=== PATIENT | female | born 1995 | race American Indian/Alaskan Native ===

== ENCOUNTER 2018-12-06 09:12 | Inpatient (IN) | payer MEDICAID ==
[2018-12-06 12:59] LABS: Basophils % (Auto) 0.4 % (0.0-1.8); Eosinophils # (Auto) 0.1 K/mm3 (0.0-0.4); Eosinophils % (Auto) 1.2 % (0.0-4.3); Hematocrit 37.2 % (30.3-42.9); Hemoglobin 12.9 gm/dl (10.1-14.3); Lymphocytes # (Auto) 1.9 K/mm3 (1.2-5.4); Lymphocytes % (Auto) 26.3 % (13.4-35.0); Mean Corpuscular HGB Conc 35 % (30-34); Mean Corpuscular Volume 79 fl (79-97); Monocytes # (Auto) 0.4 K/mm3 (0.0-0.8); Platelet Count 264 K/mm3 (140-440); Red Blood Count 4.69 M/mm3 (3.65-5.03); Red Cell Distribution Width 14.4 % (13.2-15.2)
--- NOTE | 2018-12-06 13:40 | History and Physical Report ---
History of Present Illness Date of examination: 12/06/18 Date of admission: 12/06/18 09:12 Chief complaint: 22 yr old at 38 +2 wks, type I diabetic admitted this morning with iugr and for induction. History of present illness: . 38+2 wks, Type I diabetic. Has an insulin pump. Blood sugars through were decent. Past History Past Medical History: diabetes (Mother reported her to have sickle cell crisis from [facility]) - Obstetrical History Expected Date of Delivery: 12/18/18 Actual Gestation: 38 Week(s) 2 Day(s) : 2 Para: 1 Number of Living Children: 1 Medications and Allergies Allergies Allergy/AdvReac Type Severity Reaction Status Date / Time Latex, Natural Rubber Allergy Nausea Verified 10/13/15 06:23 Home Medications Medication Instructions Recorded Confirmed Last Taken Type Sulfamethoxazole/Trimethoprim 1 each PO BID #20 tablet 10/13/15 Unknown Rx [Bactrim DS TAB] traMADol [Ultram] 50 mg PO Q6HR PRN #12 tablet 10/13/15 Unknown Rx Review of Systems All systems: negative - Vital Signs Vital signs: Vital Signs Pulse BP Pulse Ox 76 128/82 100 12/06/18 09:39 12/06/18 09:39 12/06/18 09:39 Temp Pulse Resp BP Pulse Ox 98.3 F 69 20 118/74 99 12/06/18 11:44 12/06/18 12:19 12/06/18 11:44 12/06/18 11:45 12/06/18 12:19 - Physical Exam Breasts: Positive: deferred Lungs: Positive: Clear to auscultation - Obstetrical FHR: category 1 Results Result Diagrams: 12/06/18 10:30 Abnormal lab results 12/06/18 Range/Units 10:30 MCHC 35 H (30-34) % All other labs normal. Assessment and Plan - Patient Problems (1) Term Current Visit: Yes Status: Acute (2) Type I diabetes mellitus Current Visit: Yes Status: Acute Plan to address problem: Admit to L&D. Patient ordered to not use her insulin pump whilst on admission and to defer all insulin injections to hospital staff. Started on sliding scale insulin. Started on cervidil. (3) IUGR (intrauterine growth restriction) Current Visit: Yes Status: Acute
[2018-12-06] MEDS ORDERED: BRETHINE SUB-Q PRN (13:47)
[2018-12-06] MEDS ORDERED: MINERAL OIL PO PRN (13:47)
[2018-12-06] MEDS ORDERED: BRETHINE IVP PRN (13:47)
[2018-12-06] MEDS ORDERED: PITOCin/NS 20 UNIT/1000ML DRIP 20 UNITS/1,000 ML BAG IV SCH (14:00)
[2018-12-06] MEDS ORDERED: PITOCin/NS 30 UNIT/500ML 30 UNITS/500 ML BAG IV SCH (14:00)
[2018-12-06] MEDS ORDERED: D50W (25GM) Syringe IV PRN (14:09)
[2018-12-06] MEDS ORDERED: AMPICILLIN/NS 2 GM/100 ML 2 GM/100 ML BAG IV ONE (15:00)
[2018-12-06] MEDS ORDERED: CERVIDIL VG ONE (15:30)
[2018-12-06] MEDS ORDERED: XYLOCAINE 2% INFILTRATI ONE (15:47)
[2018-12-06] MEDS ORDERED: AMPICILLIN 1 GM in NACL 0.9% 50 ML IV SCH (18:00)
[2018-12-06] MEDS ORDERED: TYLENOL PO PRN (21:20)
[2018-12-06] MEDS: VALTREX PO SCH (23:08)
[2018-12-07] MEDS ORDERED: AMPICILLIN/NS 2 GM/100 ML 2 GM/100 ML BAG IV ONE (10:35)
[2018-12-07] MEDS: LACTATED RINGERS 1,000 ML IV SCH (10:39)
[2018-12-07] MEDS: VALTREX PO SCH (10:39)
[2018-12-07] MEDS: AMPICILLIN/NS 1 GM/50 ML 1 GM/50 ML BAG IV SCH ×2 (15:06→19:25)
--- NOTE | 2018-12-07 16:35 | Progress Note ---
Assessment and Plan - Patient Problems (1) 38 weeks gestation of Current Visit: Yes Status: Acute Plan to address problem: Continue monitoring. Insert cervidil today. (2) Type I diabetes mellitus Current Visit: Yes Status: Acute (3) IUGR (intrauterine growth restriction) Current Visit: Yes Status: Acute (4) Sickle cell trait Current Visit: Yes Status: Acute (5) Positive GBS test Current Visit: Yes Status: Acute Plan to address problem: IV ampicillin in labor. Subjective - Subjective Date of service: 12/07/18 Principal diagnosis: SIUP at 38 weeks and 2 days with IUGR, pre-gest DM-1 Interval history: Patient is a 22 year old , EDC 12/18/18 at 38 weeks and 2 days who was admitted for labor induction due to pre-gestational DM-1 and IUGR. She is a patient of [facility] who has been co-managed with [facility]. She had an insulin pump which was discontinued on admission. She has been on insulin sliding scale since. Her glucose has been stable. She had a cervidil yesterday which was removed at 4 AM today. She is not obi. tracing is CAT1. Cervix: 1 cm/50%/-3. posterior. Objective - Vital Signs Vital Signs: Vital Signs - 12hr 12/07/18 12/07/18 12/07/18 06:53 07:16 07:53 Temperature 98.3 F Pulse Rate 62 69 67 Respiratory 20 Rate Blood Pressure 112/61 112/61 122/65 Blood Pressure [Right] O2 Sat by Pulse Oximetry 12/07/18 12/07/18 12/07/18 08:54 12:30 15:35 Temperature 98.4 F 97.7 F Pulse Rate 74 76 65 Respiratory 18 18 Rate Blood Pressure 124/69 119/71 Blood Pressure 119/78 [Right] O2 Sat by Pulse 99 99 Oximetry 12/07/18 15:36 Temperature Pulse Rate 65 Respiratory Rate Blood Pressure 119/78 Blood Pressure [Right] O2 Sat by Pulse Oximetry - Exam Cardiovascular: Normal S1, Normal S2 Lungs: Clear to auscultation Vulva: both: normal FHR: category 1 Uterine Contraction Monitor Mode: External Cervical Dilatation: 1 Cervical Effacement Percentage: 50 station: -3 Uterine Contraction Pattern: Absent Deep Tendon Reflex Grade: Normal +2 - Labs Labs: Abnormal Labs 12/06/18 10:30 MCHC 35 H Laboratory Results - last 24 hr 12/06/18 12/07/18 10:30 11:56 POC Glucose 99 RPR Nonreactive - Results US- obstetric: report reviewed
[2018-12-07] MEDS ORDERED: CERVIDIL VG ONE (17:27)
--- NOTE | 2018-12-07 19:07 | Event Note ---
Date: 12/07/18 Cervidil 10 mg placed in posterior fornix of vagina.
--- NOTE | 2018-12-08 00:09 | Event Note ---
Date: 12/08/18 SVE 2-3/-3. Cervidil out. Patient is having contractions every 2-4 minutes. Uterus palpates soft between contractions.
[2018-12-08] MEDS ORDERED: SUBLIMAZE IV ONE (00:26)
[2018-12-08] MEDS ORDERED: MARCAINE 0.25% INFILTRATI ONE (01:52)
[2018-12-08] MEDS ORDERED: fentaNYL-BUPIV 2 MCG/ML-0.125% 200 MCG/100 ML BAG EPIDURAL ONE (02:11)
[2018-12-08] MEDS ORDERED: NARCAN 2 MG/2 ML IV PRN (02:17)
[2018-12-08] MEDS ORDERED: XYLOCAINE 2%/ EPI 1:200,000 INFILTRATI ONE (02:22)
[2018-12-08] MEDS ORDERED: NACL 0.9% IR ONE (02:27)
[2018-12-08] MEDS ORDERED: WATER FOR IRRIG STERILE IR ONE (02:27)
[2018-12-08] MEDS ORDERED: SUBLIMAZE ONE (02:39)
[2018-12-08] MEDS ORDERED: VERSED ONE (02:39)
[2018-12-08] MEDS ORDERED: BENADRYL ONE (02:47)
--- NOTE | 2018-12-08 02:48 | Anesthesia Consultation ---
Anesthesia Consult and Med Hx Date of service: 12/08/18 - Airway Anesthetic Teeth Evaluation: Good ROM Head & Neck: Adequate Mental/Hyoid Distance: Adequate Mallampati Class: Class II Intubation Access Assessment: Good - Pulmonary Exam CTA: Yes - Cardiac Exam Cardiac Exam: RRR - Pre-Operative Health Status ASA Pre-Surgery Classification: ASA2, Emergency Proposed Anesthetic Plan: Epidural - Pulmonary Hx Asthma: No COPD: No Hx Pneumonia: No - Cardiovascular System Hx Hypertension: No - Central Nervous System Hx Seizures: No Hx Psychiatric Problems: Yes (Anxiety) - Endocrine Hx Renal Disease: No Hx End Stage Renal Disease: No Hx Hypothyroidism: No Hx Hyperthyroidism: No - Hematic Hx Anemia: Yes (took iron pills after last delivery) Hx Sickle Cell Disease: No (sickle cell trait) - Other Systems Hx Alcohol Use: No
--- NOTE | 2018-12-08 02:49 | Anesthesia Day of Surgery ---
Anesthesia Day of Surgery - Day of Surgery Patient Examined: Yes Patient H&P Reviewed: Yes Patient is NPO: Yes
[2018-12-08] MEDS ORDERED: fentaNYL-BUPIV 2 MCG/ML-0.125% 200 MCG/100 ML BAG EPIDURAL SCH (03:00)
[2018-12-08] MEDS ORDERED: DIPRIVAN 10 MG/ML IV ONE (03:08)
--- NOTE | 2018-12-08 03:24 | Event Note ---
Date: 12/08/18 Patient was induced with cervidil. I went to examine her. Cervix was 3-4 cm/80%/-2, intact membranes. tracing was in the 140's bpm and reactive. BP 116/70. She developed sudden bradycardia in the 40-50's bpm. Sonogram was done at bedside to confirm that it was not maternal pulse. At that time, the patient was counselled for emergency C/section. She was wheeled to the OR. Anesthesia was present. She already had an epidural for pain. NICU called.
[2018-12-08] MEDS ORDERED: MILK OF MAGNESIA PO PRN (03:25)
[2018-12-08] MEDS ORDERED: SENOKOT PO PRN (03:25)
[2018-12-08] MEDS ORDERED: MORPHINE IV PRN (03:25)
[2018-12-08] MEDS ORDERED: TUCKS PAD TP PRN (03:25)
[2018-12-08] MEDS ORDERED: MYLICON PO PRN (03:25)
[2018-12-08] MEDS ORDERED: TORADOL IV PRN ×2 (03:25)
[2018-12-08] MEDS ORDERED: TYLENOL PO PRN (03:25)
[2018-12-08] MEDS ORDERED: LANSINOH TP PRN (03:25)
[2018-12-08] MEDS ORDERED: PHENERGAN PR PRN ×2 (03:25→03:49)
[2018-12-08] MEDS ORDERED: ZOFRAN IV PRN ×2 (03:25→03:49)
[2018-12-08] MEDS ORDERED: ANUCORT-HC PR PRN (03:25)
[2018-12-08] MEDS ORDERED: NARCAN 0.4 MG/1 ML IV PRN ×2 (03:25→03:49)
[2018-12-08] MEDS ORDERED: DILAUDID ONE (03:29)
--- NOTE | 2018-12-08 03:41 | Operative Report ---
Operative Report Operative Report: Preoperative diagnosis 1. SIUP at 38 weeks and 4 days gestation in active labor. 2. CAT 3 tracing. 3. Pre-gestational diabetes type-1. Postoperative diagnosis: Same. Procedure: Emergency Primary low-transverse section. Surgeon: Dr. Hayden Refinery Operator Gas Plant: none Anesthesia: epidural. IVF: RL 1200 cc. EBL: 200 cc Urine: 100 cc clear Complications: none. Intraoperative findings: 1. A male found in an YURIDIA position, delivered at 2:32 AM, Apgars 8 at 1 minute and 9 at 5 minutes, weight 6 lbs 2 oz. 2. Normal fallopian tubes and ovaries bilaterally. Procedure details: Risks, benefits, and alternatives of the procedure were discussed in detail with the patient which included but not limited to the risk of infection, hemorrhage requiring blood transfusion, injury to the bowel or bladder and blood vessels. The patient expressed understanding, her questions were answered, and she gave informed consent. The patient was taken to the operating room with an IV fluid infusing Ringers lactate. In the operating room, she was placed in a dorsal supine position with a leftward tilt. She was loaded with epidural anesthesia. Barrett catheter in Venodyne boots were placed. The abdomen was washed and she was prepared and draped in usual sterile fashion. After confirming adequate epidural anesthesia, the Pfannenstiel skin incision was made in the lower abdomen about 2 cm above the pubic symphysis using the scalpel. This incision was carried down to the underlying fascia using the Bovie. The fascia was opened bilaterally in a curvilinear fashion using the Bovie. 2 straight Kocker clamps were used to grasp the upper edge of the fascia from which the underlying rectus abdominis muscles was dissected off using the Bovie. A similar procedure was done with the lower edge of the fascia to dissect the underlying rectus abdominis muscle. The muscle was bluntly from the midline by pulling. The parietal peritoneum was grasped with 2 hemostat clamps and entered sharply using Metzenbaum scissors. A quick survey of the anatomy revealed a gravid uterus, normal fallopian tubes and ovaries bilaterally. A bladder flap was created. Robi'O retractor was placed in the incision for proper visualization. A low transverse incision was made in the lower uterine segment using the scalpel and extended bilaterally in a curvilinear fashion using bandage scissors. There was copious amount of clear amniotic fluid. The was found in an UYRIDIA position, the head was delivered atraumatically followed by the delivery of the shoulders and the rest of the body at 2:32 AM. The cord was clamped 2 and cut and the was handed off to the waiting clay burner. The infant was a male, Apgars were 8 at 1 minute and 9 at 5 minutes, weight was 6 pounds 2 oz. Cord blood was collected. The placenta was delivered manually and it was complete with a three-vessel cord. The uterine cavity was cleaned of clots and debris using dry lap sponges. The uterine incision was repaired in a running locked fashion using 0 Vicryl sutures. A second layer of imbrication was placed. The gutters were cleaned of clots and debris using dry lap sponges. After confirming adequate hemostasis, the instruments were removed from the abdominal cavity. The rectus muscle was reapproximated in an interrupted fashion using 0 Vicryl sutures. The fascia was closed in a running fashion using 0 Vicryl sutures. The subcutaneous adipose layer was closed with 2.0 chromic sutures. The skin was closed with tolu. Sterile dressing was placed. The counts of laps, needles, sponges, and instruments were correct 2. The patient tolerated the procedure well, she was taken to the recovery room in a stable condition.
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
[2018-12-08] MEDS ORDERED: DILAUDID IV PRN ×2 (03:49)
[2018-12-08] MEDS ORDERED: PHENERGAN PO PRN (03:49)
[2018-12-08] MEDS ORDERED: PITOCin/NS 20 UNIT/1000ML DRIP 20 UNITS/1,000 ML BAG IV SCH (04:00)
[2018-12-08] MEDS ORDERED: SODIUM CHLORIDE FLUSH SYRINGE 10 ML IV NR ×2 (04:00)
[2018-12-08] MEDS: MORPHINE IV PRN ×2 (07:38→12:30)
[2018-12-08] MEDS: HumuLIN R SUB-Q SCH ×6 (08:33→19:45)
[2018-12-08] MEDS: LACTATED RINGERS 1,000 ML IV SCH (09:25)
[2018-12-08] MEDS: PRENATAL VITAMIN PO SCH (09:27)
[2018-12-08] MEDS: FEOSOL PO SCH (09:27)
[2018-12-08] MEDS: VALTREX PO SCH ×3 (09:53→22:17)
[2018-12-08 15:40] LABS: Hematocrit 29.1 % (30.3-42.9); Hemoglobin 10.2 gm/dl (10.1-14.3)
[2018-12-08] MEDS: PERCOCET 5/325 PO PRN ×2 (15:54→22:17)
[2018-12-08] MEDS: IBUPROFEN PO PRN (20:58)
[2018-12-09] MEDS: PERCOCET 5/325 PO PRN ×3 (05:27→23:25)
[2018-12-09] MEDS: HumuLIN R SUB-Q SCH ×6 (07:30→19:00)
[2018-12-09] MEDS: IBUPROFEN PO PRN (09:28)
[2018-12-09] MEDS: VALTREX PO SCH ×2 (09:28→23:25)
[2018-12-09] MEDS: FEOSOL PO SCH (09:28)
[2018-12-09] MEDS: PRENATAL VITAMIN PO SCH (09:29)
--- NOTE | 2018-12-09 17:15 | Progress Note ---
Assessment and Plan - Patient Problems (1) S/P primary low transverse Current Visit: Yes Status: Acute Plan to address problem: POD 1 - stable Continue routine postop orders Ambulation encouraged, as tolerated Abdominal binder ordered Anticipate discharge in 24-48 hours (2) Anemia due to blood loss, acute Current Visit: Yes Status: Acute Plan to address problem: Asymptomatic Continue iron therapy (3) Type I diabetes mellitus Current Visit: Yes Status: Acute Qualifiers: Diabetes mellitus complication status: without complication Qualified Code(s): E10.9 - Type 1 diabetes mellitus without complications Plan to address problem: Blood glucose stable Continue sliding scale insulin Continue GDM diet Subjective - Subjective Date of service: 12/09/18 Principal diagnosis: POD #1; s/p Primary LTCS, Pre-gest DM-1 Interval history: see H&P, OB Progress Note, Event Notes, Operative Report Patient reports: appetite normal, voiding normally, pain well controlled, flatus, ambulating normally, no dizzy ambulation, no bowel movement : doing well, other (breast and bottle feeding) Objective - Vital Signs Latest vital signs: Vital Signs Temp Pulse Resp BP Pulse Ox 12/09/18 08:46 98.1 F 75 18 117/64 98 12/09/18 06:27 18 12/09/18 05:27 18 12/09/18 01:54 97.9 F 79 20 113/66 99 12/08/18 23:17 18 12/08/18 22:18 98.3 F 82 20 114/64 98 12/08/18 22:17 18 12/08/18 21:58 18 12/08/18 20:58 18 Intake and Output 12/09/18 12/09/18 12/09/18 07:59 15:59 23:59 Intake Total 360 Output Total 400 Balance -40 Intake: Intake, Free Water 360 Output: Urine 400 Void 400 Other: Total, Output Amount 400 # Voids Void 1 - Exam Cardiovascular: Present: Regular rate Lungs: Present: Clear to auscultation Abdomen: Present: normal appearance, soft Vulva: both: normal Uterus: Present: normal, firm, fundal height at umbilicus Extremities: Present: normal Incision: Present: normal, dry, intact, dressed Comments: scant lochia
[2018-12-10] MEDS: IBUPROFEN PO PRN ×2 (06:00→13:44)
[2018-12-10] MEDS: HumuLIN R SUB-Q SCH ×2 (08:00→10:37)
[2018-12-10] MEDS: PRENATAL VITAMIN PO SCH (10:03)
[2018-12-10] MEDS: FEOSOL PO SCH (10:03)
[2018-12-10] MEDS: PERCOCET 5/325 PO PRN ×2 (10:03→16:23)
[2018-12-10] MEDS: VALTREX PO SCH (10:03)
[2018-12-10] MEDS ORDERED: HumuLIN R SUB-Q SCH (14:00)
--- NOTE | 2018-12-10 14:34 | Progress Note ---
Assessment and Plan - Patient Problems (1) 38 weeks gestation of Current Visit: Yes Status: Acute (2) Type I diabetes mellitus Current Visit: Yes Status: Acute Qualifiers: Diabetes mellitus complication status: without complication Qualified Code(s): E10.9 - Type 1 diabetes mellitus without complications (3) IUGR (intrauterine growth restriction) Current Visit: Yes Status: Acute (4) Sickle cell trait Current Visit: Yes Status: Acute (5) Positive GBS test Current Visit: Yes Status: Acute Plan to address problem: IV ampicillin given in labor. (6) delivery delivered Current Visit: Yes Status: Acute Plan to address problem: Continue routine post op care. Patient wants to go home today. Precautions were given. Continue glucose monitoring. Pt to F/U in office in 1 week for wound check and with income tax consultant in one week. Subjective - Subjective Date of service: 12/10/18 Principal diagnosis: POD #2; s/p Primary LTCS, Pre-gest DM-1 Interval history: Patient is a 22 year old , EDC 12/18/18 at 38 weeks and 2 days who was admitted for labor induction due to pre-gestational DM-1 and IUGR. She is a patient of [facility] who has been co-managed with [facility]. She had an insulin pump which was discontinued on admission. She has been on insulin sliding scale since. Her glucose has been stable. She had a cervidil. She progressed to 3-4 cm and developed bradycardia. She underwent an emergency C/section. She ahs been on a sliding scale insulin. Her glucose has been fairly controlled with fasting of 87 and 2-hr PP 119. She is tolerating ADA diet well and is ambulating. She passed flatus. No BM yet. Objective - Vital Signs Latest vital signs: Vital Signs Temp Pulse Resp BP BP Pulse Ox 12/10/18 08:36 98.0 F 18 130/72 12/10/18 07:00 18 12/10/18 06:00 18 12/10/18 00:25 18 12/10/18 00:00 98.4 F 62 19 114/67 12/09/18 23:25 18 12/09/18 18:03 98.6 F 87 20 121/74 98 Intake and Output 12/09/18 12/10/18 12/10/18 23:59 07:59 15:59 Intake Total 720 360 Balance 720 360 Intake: Oral 360 Intake, Free Water 360 360 Other: Total, Intake Amount 360 # Voids Void 1 1 - Exam Cardiovascular: Present: Normal S1, Normal S2 Lungs: Present: Clear to auscultation Vulva: both: normal Deep Tendon Reflex Grade: Normal +2 - Labs Labs: Abnormal lab results 12/09/18 12/10/18 Range/Units 19:22 14:10 POC Glucose 138 H 119 H (70-105)
--- NOTE | 2018-12-10 15:48 | Discharge Summary ---
Providers - Providers Date of Admission: 12/06/18 09:12 Date of discharge: 12/10/18 Attending physician: SAMARA MEADOWS MD 12/06/18 14:09 Consult to Dietitian/Nutrition [CONS] Routine Physician Instructions: Reason For Exam: Reason for Consult: Diet education Primary care physician: BUS ESCORT Hospitalization Reason for admission: induction of labor Delivery: Procedure: primary low transverse Other procedures: none complications: none Discharge diagnosis: other (type-1 diabetes, IUGR, oligohydramnios.) Hospital course: Patient is a 22 year old , EDC 12/18/18 who is S/P emergency C/section at 38 weeks and 2 days for bradycardia. She has pre-gestational DM-1. She has been managed by her endomcrinologist before the and has been co- managed with [facility] until delivery. She had an insulin pump which was discontinued on admission. She has been on insulin sliding scale since. Her glucose has been stable. She has been on a sliding scale insulin. Her glucose has been fairly controlled with fasting of 87 and 2-hr PP 119. She is tolerating ADA diet well and is ambulating. She passed flatus. No BM yet. She wants to go home today. Objective Condition at discharge: Stable Disposition: DC-01 TO HOME OR SELFCARE - Discharge Diagnoses (1) 38 weeks gestation of Status: Acute (2) Type I diabetes mellitus Status: Acute Qualifiers: Diabetes mellitus complication status: without complication Qualified Code(s): E10.9 - Type 1 diabetes mellitus without complications (3) IUGR (intrauterine growth restriction) Status: Acute (4) Sickle cell trait Status: Acute (5) Positive GBS test Status: Acute (6) delivery delivered Status: Acute Plan - Discharge Medications Prescriptions: Ibuprofen [Motrin] 800 mg PO Q8HR PRN #30 tablet PRN Reason: Pain, Moderate (4-6) oxyCODONE /ACETAMINOPHEN [Percocet 5/325] 1 tab PO Q4HR #20 tab - Provider Discharge Summary Activity: no sex for 6 weeks, no heavy lifting 4 weeks, no strenuous exercise Diet: other (AdA diet) Additional instructions: [] Smoking cessation referral if applicable(refer to patient education folder for contact #) [] Refer to [facility]'s [facility] Booklet Call your doctor immediately for: * Fever > 100.5 * Heavy vaginal bleeding ( >1 pad per hour) * Severe persistent headache * Shortness of breath * Reddened, hot, painful area to leg or breast * Drainage or odor from incision. * Keep incision clean and dry at all times and follow doctor's instructions regarding bathing/showering - Follow up plan Follow up: PRIMARY MD WILIAN [Primary Care Provider] - 7 Days SAMARA MEADOWS MD [Staff Physician] - 7 Days
[2018-12-10 17:49] VITALS: BP 115/74
[2018-12-12 11:58] LABS: Hemoglobin A2 Prime TNR; Hemoglobin G TNR; Hemoglobin Lepore TNR
[2018-12-12 11:59] LABS: Hemoglobin Barts TNR; Hemoglobin E TNR; Hemoglobin O-Arab TNR; IEF Confirm TNR; Interpretation TNR; Sickle Solubility Test TNR
== END 2018-12-10 18:30 | disposition home or self-care (01) | DRG 765 ==
LOC: LD 09:12 → OB 12-08 06:15
PROVIDERS: ADMIT Obstetrics & Gynecology; ATTEND Obstetrics & Gynecology
PROC: 10D00Z1 Extraction of Products of Conception, Low, Open Approach (ICD-10-PCS; principal; 2018-12-08)
DX: O99.42 Diseases of the circulatory system complicating childbirth (principal); D62 Acute posthemorrhagic anemia; O41.03X0 Oligohydramnios, third trimester, not applicable or unspecified; O99.344 Other mental disorders complicating childbirth; O36.5930 Maternal care for other known or suspected poor fetal growth, third trimester, not applicable or unspecified; O99.824 Streptococcus B carrier state complicating childbirth; O90.81 Anemia of the puerperium; O24.420 Gestational diabetes mellitus in childbirth, diet controlled; D57.3 Sickle-cell trait; R00.1 Bradycardia, unspecified; F41.9 Anxiety disorder, unspecified; Z37.0 Single live birth; Z3A.38 38 weeks gestation of pregnancy
CPT/HCPCS: 36415; 74018; 82962; 85014; 85018; 85025; 86592; 86850; 86900; 86901; 88307; G0378; J0290; J1170; J1200; J1885; J2250; J2270; J2704; J3010; J7120